=== PATIENT | male | born 1990 | race Caucasian/White ===

== ENCOUNTER 2019-11-14 18:17 | Emergency (ER) | payer BC ==
[~2019-11-14] VITALS: Ht 180.3 cm; Wt 117.9 kg
[2019-11-14 18:17] VITALS: BP_SYST 135
--- NOTE | 2019-11-14 18:17 | NUR ---
BROUGHT BACK TO BED #7 AND TRIAGED. REPROT GIVEN TO COSME
--- NOTE | 2019-11-14 18:24 | NUR ---
Pt AAOx4 ambulated into ED c/o L hand numbness, tingling to 3rd and 4th digit x 2 weeks. Denies trauma. Skin pink dry and warm, breathing even and unlabored. No other injuries/complaints per pt/noted. Will continue to monitor.
--- NOTE | 2019-11-14 18:25 | NUR ---
ER Dr. Dowling at bedside examining patient.
[2019-11-14 18:59] VITALS: BP_SYST 128
--- NOTE | 2019-11-14 18:59 | NUR ---
Note undone in EDM - 11/14/19 at 2146 by [email or web address] Patient given written and verbal discharge instructions and verbalizes understanding. ER MD Dowling discussed with patient the results and treatment provided. Patient in stable condition. ID arm band removed. Rx of Motrin given. Patient educated on pain management and to follow up with PMD. Pain Scale 0. Opportunity for questions provided and answered. Medication side effect fact sheet provided.
== END 2019-11-14 18:59 | disposition home or self-care (01) ==
LOC: SED 18:17
DX: G62.9 Polyneuropathy, unspecified (principal)
CPT/HCPCS: 93005; 99283